=== PATIENT | male | born 1940 | race Caucasian/White ===

== ENCOUNTER 2023-10-25 17:23 | Emergency (ER) | payer MEDICARE, BC ==
[~2023-10-25] VITALS: Ht 172.7 cm; Wt 88.9 kg
[2023-10-25 17:31] VITALS: TEMP 98
[2023-10-25 17:42] VITALS: BP 153/72; O2SAT 100
[2023-10-25] MEDS: KETOROLAC TROMETHAMINE 15 MG/ML VIAL IV ONE (18:00)
[2023-10-25] MEDS: IV NS 0.9% 1,000 ML BAG IV ONE (18:04)
[2023-10-25] MEDS ORDERED: KETOROLAC TROMETHAMINE 15 MG/ML VIAL ONE (18:06)
[2023-10-25 18:59] LABS: HEMOGLOBIN 14.6 g/dL (13.5-17.5)
[2023-10-25 19:00] LABS: HEMATOCRIT 43 % (39-51); MEAN CORPUSCULAR HEMOGLOBIN 32 PG (26.0-33.0); MEAN CORPUSCULAR HGB CONC 34 g/dl (31.0-36.0); MEAN CORPUSCULAR VOLUME 95 fL (80-96); WHITE BLOOD COUNT (AUTO) 17.2 K/uL (4.3-11.0)
[2023-10-25 19:01] LABS: BASOPHILS % (AUTO) 0.4 % (0.0-2.0); EOSINOPHILS % (AUTO) 0.6 % (0.0-6.0); MONOCYTES % (AUTO) 6.8 % (2.0-12.0); NEUTROPHILS # (AUTO) 14.8 K/uL (1.8-8.9); NEUTROPHILS % (AUTO) 86.2 % (43.0-81.0); PLATELET COUNT (AUTO) 221 K/uL (150-450)
[2023-10-25 19:02] LABS: BASOPHILS # (AUTO) 0.1 K/uL (0.0-0.2); EOSINOPHILS # (AUTO) 0.1 K/uL (0.0-0.7); MONOCYTES # (AUTO) 1.2 K/uL (0.1-1.30)
[2023-10-25] MEDS ORDERED: IOHEXOL-300 100 ML VIAL IV ONE (19:03)
[2023-10-25] MEDS ORDERED: IV NS 0.9% 250 ML IV ONE (19:04)
[2023-10-25 19:11] LABS: CALCIUM, SERUM 8.6 mg/dL (8.5-10.1); CARBON DIOXIDE 27 mmol/L (21-32); CHLORIDE 106 mmol/L (98-107); CREATININE 0.9 mg/dL (0.6-1.3); GLUCOSE 85 mg/dL (74-106); SODIUM SERUM 139 mmol/L (136-145); UREA NITROGEN, BLOOD 18 mg/dL (7-18)
[2023-10-25] MEDS: oxyCODONE/APAP (5/325 MG) 1 UDTAB TABLET PO ONE (19:15)
[2023-10-25 19:17] LABS: ALANINE AMINOTRANSFERASE 27 U/L (12-78); ALBUMIN 3.8 g/dL (3.4-5.0); ALKALINE PHOSPHATASE 44 U/L (46-116); ASPARTATE AMINOTRANSFERASE 22 U/L (15-37); BILIRUBIN,DIRECT 0.2 mg/dL (0.0-0.2); BILIRUBIN,TOTAL 0.7 mg/dL (0.2-1.0); TOTAL PROTEIN, SERUM 6.6 g/dL (6.4-8.2)
[2023-10-25] MEDS ORDERED: NAPR-1009 PO (20:27)
[2023-10-25 21:38] LABS: LYMPHOCYTES % (MANUAL) 10 % (16-48); MONOCYTES % (MANUAL) 10 % (0-11.0); NEUTROPHILS % (MANUAL) 80 (42-76)
[2023-10-25 21:39] LABS: PLATELET ESTIMATE ADEQUATE
== END 2023-10-25 21:00 | disposition home or self-care (01) ==
LOC: ER 17:30
DX: S22.42XA Multiple fractures of ribs, left side, initial encounter for closed fracture (principal); I10 Essential (primary) hypertension; E78.5 Hyperlipidemia, unspecified; Z88.0 Allergy status to penicillin; W08.XXXA Fall from other furniture, initial encounter; Y93.89 Activity, other specified; Y92.89 Other specified places as the place of occurrence of the external cause; Y99.8 Other external cause status
CPT/HCPCS: 99285; 96374; 71260; 71045; 96361; 85025; 80048; 80076; 36415; 85007; J7030; J7050; Q9967; J1885